=== PATIENT | male | born 1995 | race American Indian/Alaskan Native ===

== ENCOUNTER 2017-08-29 20:08 | Emergency (ER) | payer BC ==
[2017-08-29 20:23] VITALS: TEMP 98.3; O2SAT 98
--- NOTE | 2017-08-29 20:32 | ED PDOC ---
Lower Extremity Pain/Injury Time Seen by Provider: 08/29/17 20:27 Chief Complaint (Nursing): Lower Extremity Problem/Injury Chief Complaint (Provider): right thigh pain History Per: Patient Additional Complaint(s): 22 year old male presents to the ED for an evaluation of lesion to right thigh that he noticed yesterday. Patient has mild pain to affected area with no drainage, pruritus or bleeding. No fever or chills. PMD: none Past Medical History Reviewed: Historical Data, Nursing Documentation, Vital Signs Vital Signs: Last Vital Signs Temp 98.3 F 08/29/17 20:20 Pulse 100 H 08/29/17 20:20 Resp 20 08/29/17 20:20 BP 156/92 H 08/29/17 20:20 Pulse Ox 98 08/29/17 20:20 - Medical History PMH: No Chronic Diseases - Surgical History Surgical History: No Surg Hx - Family History Family History: States: Hypertension - Living Arrangements Living Arrangements: With Friends/Others - Social History Current smoker - smoking cessation education provided: No Alcohol: Social Drugs: Denies - Allergies Allergies/Adverse Reactions: Allergies Allergy/AdvReac Type Severity Reaction Status Date / Time No Known Allergies Allergy Verified 08/29/17 20:14 Review of Systems ROS Statement: Except As Marked, All Systems Reviewed And Found Negative Constitutional: Negative for: Fever Musculoskeletal: Positive for: Other (right thigh pain, lesion to right thigh) Physical Exam - Reviewed Nursing Documentation Reviewed: Yes Vital Signs Reviewed: Yes - Physical Exam Appears: Positive for: Well, Non-toxic, No Acute Distress Head Exam: Positive for: ATRAUMATIC, NORMAL INSPECTION, NORMOCEPHALIC Skin: Positive for: Normal Color. Negative for: Rash Eye Exam: Positive for: Normal appearance Extremity: Positive for: Other (Superficial pustular lesion noted to medial right thigh, minimally tender upon palpation, no erythematous streaking, no active drainage) Neurologic/Psych: Positive for: Alert, Oriented (x3) - ECG O2 Sat by Pulse Oximetry: 98 (RA) Pulse Ox Interpretation: Normal Medical Decision Making Medical Decision Making: Time: 2026 Initial Impression: 22 year old male with boil to right thigh Patient was instructed to apply warm compresses with Epsom salts to affected area and take NSAIDs for pain. Repeat blood pressure prior to discharge is 127/88. Scribe Attestation: Documented by Iveth Barrios, acting as a scribe for Jia Mello PA-C Provider Scribe Attestation: All medical record entries made by the Scribe were at my direction and personally dictated by me. I have reviewed the chart and agree that the record accurately reflects my personal performance of the history, physical exam, medical decision making, and the department course for this patient. I have also personally directed, reviewed, and agree with the discharge instructions and disposition. Disposition - Clinical Impression Clinical Impression: Boil - Patient ED Disposition Is Patient to be Admitted: No Counseled Patient/Family Regarding: Diagnosis, Need For Followup - Disposition Referrals: [facility] [Outside] Disposition: Routine/Home Disposition Time: 20:31 Condition: STABLE Additional Instructions: Apply warm compresses with epsom salts to affected area as often as possible. Advil as needed for pain. Follow up with primary care doctor. Instructions: Boil Forms: [employer] (Bengali)
[2017-08-29 20:54] VITALS: BP 127/88; PULSE 82; RESP 16
== END 2017-08-29 21:36 | disposition home or self-care (01) ==
LOC: H.ER 20:08
DX: L02.425 Furuncle of right lower limb (principal)

== ENCOUNTER 2017-09-13 19:48 | Emergency (ER) | payer BC ==
[2017-09-13 19:55] VITALS: BP 144/79; PULSE 85; RESP 18; TEMP 98; O2SAT 98
--- NOTE | 2017-09-13 20:33 | ED PDOC ---
HPI: Skin/Bite Injury Time Seen by Provider: 09/13/17 19:56 Chief Complaint (Nursing): Lower Extremity Problem/Injury Chief Complaint (Provider): Abnormal Skin Integrity History Per: Patient History/Exam Limitations: no limitations Onset/Duration Of Symptoms: Days (x1 month) Current Symptoms Are (Timing): Still Present Additional Complaint(s): 22 year old male presents to the ED for evaluation of an itchy rash to his left foot beginning about a month ago. Patient states that it has since worsened after returning from [place] last week, but has not taken any over the counter medications. He reports he has been trying to walk around barefoot as much as possible. PMD: none provided Past Medical History Reviewed: Historical Data, Nursing Documentation, Vital Signs Vital Signs: Last Vital Signs Temp 98 F 09/13/17 19:51 Pulse 85 09/13/17 19:51 Resp 18 09/13/17 19:51 BP 144/79 09/13/17 19:51 Pulse Ox 98 09/13/17 20:38 - Medical History PMH: HTN - Surgical History Surgical History: No Surg Hx - Family History Family History: States: Hypertension - Home Medications Home Medications: Ambulatory Orders Medication Instructions Recorded Tolnaftate [Lamisil AF Defense] 1 spray TP BID 7 Days #1 spr 09/13/17 - Allergies Allergies/Adverse Reactions: Allergies Allergy/AdvReac Type Severity Reaction Status Date / Time No Known Allergies Allergy Verified 09/13/17 19:55 Review of Systems ROS Statement: Except As Marked, All Systems Reviewed And Found Negative Skin: Positive for: Rash (and itching to left foot) Physical Exam - Reviewed Nursing Documentation Reviewed: Yes Vital Signs Reviewed: Yes - Physical Exam Appears: Positive for: No Acute Distress Skin: Positive for: Normal Color, Warm, Dry Cardiovascular/Chest: Positive for: Regular Rate, Rhythm Respiratory: Positive for: Normal Breath Sounds. Negative for: Accessory Muscle Use, Respiratory Distress Extremity: Positive for: Normal ROM, Other (soles of feet positive for: erythema , dry scaled crusting between webbed spaces of toes) Neurologic/Psych: Positive for: Alert, Oriented (x3). Negative for: Motor/ Sensory Deficits - ECG O2 Sat by Pulse Oximetry: 98 (RA) Pulse Ox Interpretation: Normal Medical Decision Making Medical Decision Making: Time: 20:25 Initial Impression: tinea pedis Initial Plan: --No tx is necessary at this time in the ED. Patient made aware of diagnosis, and all questions answered. He will be d/c with a prescription for Lamisil, and advised to follow up with his PMD or the ER with any new or worsening symptoms. All questions answered at this time. Scribe Attestation: Documented by Wilda Balderas, acting as a scribe for Jia Goldman PA-C. Provider Scribe Attestation: All medical record entries made by the Scribe were at my direction and personally dictated by me. I have reviewed the chart and agree that the record accurately reflects my personal performance of the history, physical exam, medical decision making, and the department course for this patient. I have also personally directed, reviewed, and agree with the discharge instructions and disposition. Disposition - Clinical Impression Clinical Impression: Tinea pedis - Patient ED Disposition Is Patient to be Admitted: No - Disposition Disposition: Routine/Home Disposition Time: 20:59 Condition: STABLE Prescriptions: Tolnaftate [Lamisil AF Defense] 1 spray TP BID 7 Days #1 spr Instructions: Athlete's Foot Forms: [employer] (Icelandic) - POElenita Present On Arrival: None
== END 2017-09-13 21:20 | disposition home or self-care (01) ==
LOC: H.ER 19:48
DX: B35.3 Tinea pedis (principal); I10 Essential (primary) hypertension